=== PATIENT | female | born 1950 | race Caucasian/White ===

== ENCOUNTER 2019-01-17 04:15 | Inpatient (IN) ==
[2019-01-17] MEDS ORDERED: SODIUM CHLORIDE 0.9% 500 ML IV STA (04:42)
[2019-01-17] MEDS ORDERED: MORPHINE 4 MG/1 ML VIAL IV STA (04:42)
[2019-01-17] MEDS ORDERED: ONDANSETRON 4 MG/2 ML VIAL IV STA (04:42)
[2019-01-17 04:49] LABS: Basophils % 0.1 % (0.0-0.8); Eosinophils % 0.2 % (0.00-10.9); Hematocrit 31.8 VOL% (35.7-47.0); Hemoglobin 10.2 GM/DL (12.0-16.0); Immature Granulocytes % 0.9 %; Immature Granulocytes Absolute 0.15 #; Lymphocytes # 2.1 10*3/uL (1.4-4.0); Lymphocytes % 12.4 % (21.3-54.2); Mean Corpuscular HGB Conc 32.1 GM/DL (32-36); Mean Corpuscular Volume 96.7 FL (87-102); Mean Platelet Volume 10.4 FL (9.6-12.0); Monocytes % 9.6 % (1.7-12.7); Neutrophils % 76.8 % (38.7-73.9); Platelet Count 238 T/CUMM (130-400); Red Blood Count 3.29 MC/CUMM (3.8-5.5); Red Cell Distribution Width 15.1 % (9.3-17.3); White Blood Count 17.2 T/CUMM (4-12)
[2019-01-17 05:12] LABS: Albumin 2.7 G/DL (3.4-5.0); Calcium 10.2 MG/DL (8.5-10.1); Osmolality,Calculated 271.2 MOS/KG (273-304); Total Protein 7.1 G/DL (6.4-8.3)
[2019-01-17] MEDS ORDERED: metroNIDAZOLE INJ 500 MG in PREMIX 1 EACH IV STA (05:29)
[2019-01-17] MEDS ORDERED: PROMETHAZINE INJ 25 MG in SODIUM CHLORIDE 0.9% 50 ML IV STA (05:46)
[2019-01-17] MEDS ORDERED: HYDROmorphone 2 MG/1 ML VIAL IV STA (05:48)
[2019-01-17] MEDS ORDERED: ACETAMINOPHEN 325 MG TABLET PO PRN (07:25)
[2019-01-17] MEDS ORDERED: MAGNESIUM SULF RIDER 4 GM in PREMIX 1 EACH IV PRN (07:25)
[2019-01-17] MEDS ORDERED: SODIUM CHLORIDE 0.9% 1,000 ML IV SCH (07:25)
[2019-01-17] MEDS ORDERED: INFLUENZA VIRUS VACCINE 0.5 ML SYRINGE IM ONE (07:26)
[2019-01-17] MEDS: PANTOPRAZOLE 40 MG VIAL IV SCH (08:34)
[2019-01-17] MEDS: CIPROFLOXACIN INJ 400 MG in PREMIX 1 EACH IV SCH ×2 (08:35→20:59)
[2019-01-17] MEDS: PROMETHAZINE INJ 25 MG in SODIUM CHLORIDE 0.9% 50 ML IV PRN (09:48)
[2019-01-17 10:16] LABS: Apearance,Urine CLEAR (Clear); Bilirubin,Urine Negative (Negative); Blood, Urine Negative (Negative); Glucose,Urine (UA) Negative (Negative); Ketones,Urine Negative (Negative); Nitrite,Urine Negative (Negative); Protein,Urine Negative; RBC,Urine <1 /HPF (0-4); Squamous Epithelial Cell,Urine Occasional /HPF (0-10); Urine Color Yellow (Yellow); Urine Specific Gravity 1.015 (1.001-1.035); WBC,Urine 1 /HPF (0-6)
[2019-01-17] MEDS: POTASSIUM CHLORIDE RIDER 10 MEQ in PREMIX 1 EACH IV PRN ×2 (11:33→12:49)
[2019-01-17] MEDS: HYDROmorphone 2 MG/1 ML VIAL IV PRN ×2 (12:41→17:48)
[2019-01-17] MEDS: metroNIDAZOLE INJ 500 MG in PREMIX 1 EACH IV SCH ×2 (14:02→23:08)
[2019-01-17] MEDS: MAGNESIUM SULF RIDER 2 GM in PREMIX 1 EACH IV PRN (15:40)
[2019-01-17] MEDS: DEXT 5% NACL 0.9% KCL 20 MEQ 20 MEQ/1,000 ML BAG IV SCH (15:42)
[2019-01-17] MEDS ORDERED: SODIUM PHOSPHATE IV ONE (16:36)
[2019-01-17] MEDS ORDERED: SODIUM CHLORIDE 0.9% IV ONE (16:36)
[2019-01-17] MEDS: RIVAROXABAN 20 MG TABLET PO SCH (17:20)
[2019-01-17] MEDS: ONDANSETRON 4 MG/2 ML VIAL IV PRN (17:48)
[2019-01-18] MEDS: ONDANSETRON 4 MG/2 ML VIAL IV PRN ×2 (01:24→21:03)
[2019-01-18] MEDS: HYDROmorphone 2 MG/1 ML VIAL IV PRN ×5 (01:24→21:03)
[2019-01-18] MEDS: DEXT 5% NACL 0.9% KCL 20 MEQ 20 MEQ/1,000 ML BAG IV SCH ×3 (03:34→15:54)
[2019-01-18 04:33] LABS: Basophils % 0.1 % (0.0-0.8); Eosinophils # 0.2 10*3/uL (0.0-0.87); Eosinophils % 2.2 % (0.00-10.9); Hematocrit 26.8 VOL% (35.7-47.0); Hemoglobin 8.2 GM/DL (12.0-16.0); Immature Granulocytes % 0.3 %; Immature Granulocytes Absolute 0.03 #; Lymphocytes # 1.5 10*3/uL (1.4-4.0); Lymphocytes % 14.8 % (21.3-54.2); Mean Corpuscular HGB Conc 30.6 GM/DL (32-36); Mean Corpuscular Volume 98.5 FL (87-102); Mean Platelet Volume 10.8 FL (9.6-12.0); Monocytes % 9.9 % (1.7-12.7); Neutrophils % 72.7 % (38.7-73.9); Platelet Count 202 T/CUMM (130-400); Red Blood Count 2.72 MC/CUMM (3.8-5.5); Red Cell Distribution Width 14.9 % (9.3-17.3); White Blood Count 10.2 T/CUMM (4-12)
[2019-01-18 04:59] LABS: Calcium 8.6 MG/DL (8.5-10.1); Osmolality,Calculated 283.3 MOS/KG (273-304)
[2019-01-18] MEDS: metroNIDAZOLE INJ 500 MG in PREMIX 1 EACH IV SCH ×3 (06:40→22:38)
[2019-01-18] MEDS: PANTOPRAZOLE 40 MG VIAL IV SCH (09:02)
[2019-01-18] MEDS: CIPROFLOXACIN INJ 400 MG in PREMIX 1 EACH IV SCH ×2 (09:02→21:08)
[2019-01-18] MEDS: RIVAROXABAN 20 MG TABLET PO SCH (09:02)
[2019-01-18] MEDS: PROMETHAZINE INJ 25 MG in SODIUM CHLORIDE 0.9% 50 ML IV PRN (09:03)
[2019-01-18] MEDS: ENOXAPARIN 100 MG/ML SYRINGE SUBCUT SCH ×2 (12:54→23:46)
[2019-01-18] MEDS: DIPHENOXYLATE/ATROPINE 2.5-0.025 MG TABLET PO PRN (12:54)
[2019-01-18] MEDS ORDERED: POTASSIUM PHOSPHATE 30 MMOL in SODIUM CHLORIDE 0.9% 250 ML IV ONE (13:00)
[2019-01-19] MEDS: DEXT 5% NACL 0.9% KCL 20 MEQ 20 MEQ/1,000 ML BAG IV SCH ×4 (02:17→15:23)
[2019-01-19] MEDS: metroNIDAZOLE INJ 500 MG in PREMIX 1 EACH IV SCH ×3 (06:20→22:09)
[2019-01-19 07:26] LABS: Basophils % 0.3 % (0.0-0.8); Eosinophils # 0.2 10*3/uL (0.0-0.87); Eosinophils % 2.4 % (0.00-10.9); Hemoglobin 8.2 GM/DL (12.0-16.0); Immature Granulocytes % 0.5 %; Immature Granulocytes Absolute 0.05 #; Lymphocytes # 1.5 10*3/uL (1.4-4.0); Lymphocytes % 15.3 % (21.3-54.2); Mean Corpuscular HGB Conc 30.4 GM/DL (32-36); Mean Corpuscular Volume 101.1 FL (87-102); Mean Platelet Volume 10.5 FL (9.6-12.0); Monocytes % 10.9 % (1.7-12.7); Neutrophils % 70.6 % (38.7-73.9); Platelet Count 223 T/CUMM (130-400); Red Blood Count 2.67 MC/CUMM (3.8-5.5); Red Cell Distribution Width 14.9 % (9.3-17.3); White Blood Count 9.7 T/CUMM (4-12)
[2019-01-19 07:44] LABS: Calcium 8.7 MG/DL (8.5-10.1); Osmolality,Calculated 275.5 MOS/KG (273-304)
[2019-01-19] MEDS: PANTOPRAZOLE 40 MG VIAL IV SCH (09:13)
[2019-01-19] MEDS: CIPROFLOXACIN INJ 400 MG in PREMIX 1 EACH IV SCH ×2 (09:13→20:35)
[2019-01-19] MEDS: HYDROmorphone 2 MG/1 ML VIAL IV PRN ×3 (09:14→22:08)
[2019-01-19] MEDS: MAGNESIUM SULF RIDER 2 GM in PREMIX 1 EACH IV PRN (11:19)
[2019-01-19] MEDS ORDERED: SODIUM PHOSPHATE INJ 30 MMOL in SODIUM CHLORIDE 0.9% 250 ML IV ONE (12:30)
[2019-01-19] MEDS: ENOXAPARIN 100 MG/ML SYRINGE SUBCUT SCH (14:14)
[2019-01-19] MEDS: HYOSCYAMINE 0.125 MG TABLET PO SCH (20:35)
[2019-01-19] MEDS: DIPHENOXYLATE/ATROPINE 2.5-0.025 MG TABLET PO PRN (22:08)
[2019-01-19] MEDS: ONDANSETRON 4 MG/2 ML VIAL IV PRN (22:08)
[2019-01-20] MEDS: HYOSCYAMINE 0.125 MG TABLET PO SCH ×5 (00:43→23:48)
[2019-01-20] MEDS: ENOXAPARIN 100 MG/ML SYRINGE SUBCUT SCH ×3 (00:45→23:48)
[2019-01-20] MEDS: DEXT 5% NACL 0.9% KCL 20 MEQ 20 MEQ/1,000 ML BAG IV SCH ×3 (01:13→22:54)
[2019-01-20 04:28] LABS: Calcium 8.8 MG/DL (8.5-10.1); Osmolality,Calculated 277.4 MOS/KG (273-304)
[2019-01-20] MEDS: MAGNESIUM SULF RIDER 2 GM in PREMIX 1 EACH IV PRN ×2 (04:44→16:48)
[2019-01-20] MEDS: metroNIDAZOLE INJ 500 MG in PREMIX 1 EACH IV SCH ×3 (05:46→21:54)
[2019-01-20] MEDS: CIPROFLOXACIN INJ 400 MG in PREMIX 1 EACH IV SCH ×2 (08:35→20:02)
[2019-01-20] MEDS: PANTOPRAZOLE 40 MG VIAL IV SCH (08:35)
[2019-01-20] MEDS ORDERED: SODIUM PHOSPHATE INJ 30 MMOL in SODIUM CHLORIDE 0.9% 250 ML IV ONE (12:08)
[2019-01-20] MEDS: DIPHENOXYLATE/ATROPINE 2.5-0.025 MG TABLET PO PRN ×2 (13:24→23:47)
[2019-01-20] MEDS: cefTRIAXone 1,000 MG in SYRINGE 1 EACH IV SCH (13:25)
[2019-01-20] MEDS: ONDANSETRON 4 MG/2 ML VIAL IV PRN (13:30)
[2019-01-21] MEDS: DIPHENOXYLATE/ATROPINE 2.5-0.025 MG TABLET PO PRN ×2 (05:35→13:03)
[2019-01-21] MEDS: HYOSCYAMINE 0.125 MG TABLET PO SCH ×3 (05:35→18:03)
[2019-01-21] MEDS: metroNIDAZOLE INJ 500 MG in PREMIX 1 EACH IV SCH ×3 (05:35→22:54)
[2019-01-21] MEDS: DEXT 5% NACL 0.9% KCL 20 MEQ 20 MEQ/1,000 ML BAG IV SCH (07:42)
[2019-01-21] MEDS: CIPROFLOXACIN INJ 400 MG in PREMIX 1 EACH IV SCH ×2 (08:01→20:43)
[2019-01-21] MEDS: PANTOPRAZOLE 40 MG VIAL IV SCH (08:02)
[2019-01-21] MEDS: ONDANSETRON 4 MG/2 ML VIAL IV PRN (12:47)
[2019-01-21] MEDS: ENOXAPARIN 100 MG/ML SYRINGE SUBCUT SCH (12:47)
[2019-01-21] MEDS ORDERED: SODIUM PHOSPHATE INJ 30 MMOL in SODIUM CHLORIDE 0.9% 250 ML IV ONE (13:30)
[2019-01-21] MEDS: POTASSIUM PHOS/SOD PHOS POWDER 250 MG PACK PO SCH ×2 (14:03→20:43)
[2019-01-21] MEDS: MAGNESIUM CHLORIDE 64 MG TABLET PO SCH ×2 (14:03→20:42)
[2019-01-21] MEDS: cefTRIAXone 1,000 MG in SYRINGE 1 EACH IV SCH (14:04)
[2019-01-22] MEDS: DEXT 5% NACL 0.9% KCL 20 MEQ 20 MEQ/1,000 ML BAG IV SCH ×4 (01:18→21:25)
[2019-01-22] MEDS: ENOXAPARIN 100 MG/ML SYRINGE SUBCUT SCH ×3 (01:24→23:51)
[2019-01-22] MEDS: HYOSCYAMINE 0.125 MG TABLET PO SCH ×5 (01:26→23:50)
[2019-01-22] MEDS: ONDANSETRON 4 MG/2 ML VIAL IV PRN ×3 (01:43→14:17)
[2019-01-22] MEDS: metroNIDAZOLE INJ 500 MG in PREMIX 1 EACH IV SCH ×3 (06:32→23:00)
[2019-01-22] MEDS: PANTOPRAZOLE 40 MG VIAL IV SCH (09:01)
[2019-01-22] MEDS: CIPROFLOXACIN INJ 400 MG in PREMIX 1 EACH IV SCH ×2 (09:01→21:00)
[2019-01-22] MEDS: POTASSIUM PHOS/SOD PHOS POWDER 250 MG PACK PO SCH ×3 (10:00→20:56)
[2019-01-22 10:07] LABS: Basophils % 0.3 % (0.0-0.8); Eosinophils # 0.1 10*3/uL (0.0-0.87); Eosinophils % 1.7 % (0.00-10.9); Hematocrit 27.2 VOL% (35.7-47.0); Hemoglobin 8.5 GM/DL (12.0-16.0); Immature Granulocytes % 3.2 %; Immature Granulocytes Absolute 0.22 #; Lymphocytes # 1.5 10*3/uL (1.4-4.0); Lymphocytes % 20.9 % (21.3-54.2); Mean Corpuscular HGB Conc 31.3 GM/DL (32-36); Mean Corpuscular Volume 97.8 FL (87-102); Mean Platelet Volume 9.7 FL (9.6-12.0); Monocytes % 12.1 % (1.7-12.7); Neutrophils % 61.8 % (38.7-73.9); Platelet Count 294 T/CUMM (130-400); Red Blood Count 2.78 MC/CUMM (3.8-5.5); Red Cell Distribution Width 14.8 % (9.3-17.3); White Blood Count 6.9 T/CUMM (4-12)
[2019-01-22 10:28] LABS: Calcium 8.7 MG/DL (8.5-10.1); Osmolality,Calculated 276.4 MOS/KG (273-304)
[2019-01-22] MEDS: MAGNESIUM CHLORIDE 64 MG TABLET PO SCH ×2 (10:36→21:26)
[2019-01-22] MEDS ORDERED: SODIUM PHOSPHATE INJ 30 MMOL in SODIUM CHLORIDE 0.9% 250 ML IV ONE (11:05)
[2019-01-22] MEDS: POTASSIUM CHLORIDE RIDER 10 MEQ in PREMIX 1 EACH IV PRN ×4 (11:06→17:24)
[2019-01-22] MEDS ORDERED: BISACODYL 5 MG TABLET PO ONE (12:00)
[2019-01-22] MEDS: cefTRIAXone 1,000 MG in SYRINGE 1 EACH IV SCH (13:17)
[2019-01-22] MEDS: DESITIN 4OZ/NYSTATIN 15 GRAM MIXTURE PASTE TOP SCH ×2 (16:25→21:00)
[2019-01-22] MEDS ORDERED: POLYETHYLENE GLYCOL POWDER 255 GM BOTTLE PO ONE (18:00)
[2019-01-22] MEDS: HYDROmorphone 2 MG/1 ML VIAL IV PRN (21:04)
[2019-01-23] MEDS: DEXT 5% NACL 0.9% KCL 20 MEQ 20 MEQ/1,000 ML BAG IV SCH ×3 (05:10→19:36)
[2019-01-23] MEDS: metroNIDAZOLE INJ 500 MG in PREMIX 1 EACH IV SCH ×2 (05:10→14:15)
[2019-01-23] MEDS: HYOSCYAMINE 0.125 MG TABLET PO SCH ×3 (05:58→19:33)
[2019-01-23 07:42] LABS: Blood Urea Nitrogen < 1 MG/DL (7-18); Calcium 8.7 MG/DL (8.5-10.1); Estimated Glom Filtration Rate 109 ML/MIN; Glucose 104 MG/DL (74-106); Osmolality,Calculated 280.3 MOS/KG (273-304)
[2019-01-23] MEDS: CIPROFLOXACIN INJ 400 MG in PREMIX 1 EACH IV SCH ×2 (10:51→23:37)
[2019-01-23] MEDS: PANTOPRAZOLE 40 MG VIAL IV SCH (10:51)
[2019-01-23] MEDS: DESITIN 4OZ/NYSTATIN 15 GRAM MIXTURE PASTE TOP SCH ×2 (10:52→21:44)
[2019-01-23] MEDS: MAGNESIUM CHLORIDE 64 MG TABLET PO SCH (10:52)
[2019-01-23] MEDS ORDERED: POLYETHYLENE GLYCOL POWDER 255 GM BOTTLE PO ONE ×2 (10:57→22:00)
[2019-01-23] MEDS: POTASSIUM PHOS/SOD PHOS POWDER 250 MG PACK PO SCH (12:47)
[2019-01-23] MEDS ORDERED: MAGNESIUM SULF RIDER 4 GM in PREMIX 1 EACH IV ONE (14:06)
[2019-01-23] MEDS: cefTRIAXone 1,000 MG in SYRINGE 1 EACH IV SCH (14:15)
[2019-01-23] MEDS: MAGNESIUM OXIDE 400 MG TABLET PO SCH ×2 (19:32→21:43)
[2019-01-23] MEDS: POTASSIUM PHOS/SOD PHOS 250 MG TABLET PO SCH ×2 (19:33→21:43)
[2019-01-24] MEDS: HYOSCYAMINE 0.125 MG TABLET PO SCH ×4 (00:35→17:43)
[2019-01-24] MEDS: DEXT 5% NACL 0.9% KCL 20 MEQ 20 MEQ/1,000 ML BAG IV SCH ×4 (01:38→23:33)
[2019-01-24] MEDS: metroNIDAZOLE INJ 500 MG in PREMIX 1 EACH IV SCH ×3 (01:38→17:43)
[2019-01-24 06:14] LABS: Albumin 2.3 G/DL (3.4-5.0); Bilirubin,Total 0.9 MG/DL (0.2-1.0); Osmolality,Calculated 275.4 MOS/KG (273-304)
[2019-01-24 07:07] LABS: Basophils % 0.2 % (0.0-0.8); Eosinophils # 0.2 10*3/uL (0.0-0.87); Eosinophils % 2.3 % (0.00-10.9); Hematocrit 26.1 VOL% (35.7-47.0); Hemoglobin 8.2 GM/DL (12.0-16.0); Immature Granulocytes Absolute 0.17 #; Lymphocytes # 1.4 10*3/uL (1.4-4.0); Lymphocytes % 16.8 % (21.3-54.2); Mean Corpuscular HGB Conc 31.4 GM/DL (32-36); Mean Platelet Volume 9.1 FL (9.6-12.0); Neutrophils % 69.7 % (38.7-73.9); Platelet Count 316 T/CUMM (130-400); Red Blood Count 2.69 MC/CUMM (3.8-5.5); Red Cell Distribution Width 15.1 % (9.3-17.3); White Blood Count 8.3 T/CUMM (4-12)
[2019-01-24 07:20] LABS: INR 1.2; PT Patient Result 12.7 SECS (9.6-12.2)
[2019-01-24] MEDS: POTASSIUM PHOS/SOD PHOS 250 MG TABLET PO SCH ×3 (09:13→21:16)
[2019-01-24] MEDS: MAGNESIUM OXIDE 400 MG TABLET PO SCH ×2 (09:13→21:16)
[2019-01-24] MEDS: PANTOPRAZOLE 40 MG VIAL IV SCH (09:13)
[2019-01-24] MEDS: LACTATED RINGERS 1,000 ML IV SCH (09:13)
[2019-01-24] MEDS: DESITIN 4OZ/NYSTATIN 15 GRAM MIXTURE PASTE TOP SCH ×2 (09:14→21:18)
[2019-01-24] MEDS ORDERED: PROPOFOL 200 MG/20 ML VIAL IV ONE (10:00)
[2019-01-24] MEDS ORDERED: LIDOCAINE 2% 5 ML VIAL ONE (10:00)
[2019-01-24] MEDS: cefTRIAXone 1,000 MG in SYRINGE 1 EACH IV SCH (13:15)
[2019-01-24] MEDS: LOPERAMIDE 2 MG CAPSULE PO PRN ×2 (15:45→21:16)
[2019-01-25] MEDS: HYOSCYAMINE 0.125 MG TABLET PO SCH ×3 (00:53→12:46)
[2019-01-25 06:40] LABS: Basophils % 0.2 % (0.0-0.8); Eosinophils # 0.1 10*3/uL (0.0-0.87); Eosinophils % 1.3 % (0.00-10.9); Hematocrit 27.1 VOL% (35.7-47.0); Hemoglobin 8.4 GM/DL (12.0-16.0); Immature Granulocytes % 1.7 %; Immature Granulocytes Absolute 0.15 #; Lymphocytes # 1.5 10*3/uL (1.4-4.0); Lymphocytes % 16.8 % (21.3-54.2); Mean Corpuscular Volume 97.8 FL (87-102); Mean Platelet Volume 9.3 FL (9.6-12.0); Monocytes % 7.7 % (1.7-12.7); Neutrophils % 72.3 % (38.7-73.9); Platelet Count 293 T/CUMM (130-400); Red Blood Count 2.77 MC/CUMM (3.8-5.5); Red Cell Distribution Width 15.1 % (9.3-17.3)
[2019-01-25 07:19] LABS: Calcium 8.5 MG/DL (8.5-10.1); Osmolality,Calculated 286.6 MOS/KG (273-304)
[2019-01-25] MEDS: POTASSIUM PHOS/SOD PHOS 250 MG TABLET PO SCH (08:38)
[2019-01-25] MEDS: MAGNESIUM OXIDE 400 MG TABLET PO SCH (08:38)
[2019-01-25] MEDS: PANTOPRAZOLE 40 MG VIAL IV SCH (08:38)
[2019-01-25] MEDS: LACTATED RINGERS 1,000 ML IV SCH (08:39)
[2019-01-25] MEDS: DEXT 5% NACL 0.9% KCL 20 MEQ 20 MEQ/1,000 ML BAG IV SCH ×2 (08:39→11:08)
[2019-01-25] MEDS: DESITIN 4OZ/NYSTATIN 15 GRAM MIXTURE PASTE TOP SCH (08:40)
[2019-01-25 11:22] VITALS: BP 123/80
[2019-01-25] MEDS: cefTRIAXone 1,000 MG in SYRINGE 1 EACH IV SCH (12:45)
== END 2019-01-25 13:57 | disposition home health service (06) | DRG 348 ==
LOC: N.ED 04:15 → N.EDINP 05:54 → SUATTDRO 05:54 → N.3E 06:17
PROVIDERS: ADMIT Internal Medicine; ATTEND Emergency Medicine

== ENCOUNTER 2019-02-02 15:08 | Inpatient (IN) ==
[2019-02-02] MEDS ORDERED: SODIUM CHLORIDE 0.9% 1,000 ML IV STA (16:44)
[2019-02-02] MEDS ORDERED: ONDANSETRON 4 MG/2 ML VIAL IV STA (16:44)
[2019-02-02] MEDS ORDERED: PANTOPRAZOLE 40 MG VIAL IV STA (16:44)
[2019-02-02] MEDS ORDERED: METOCLOPRAMIDE 10 MG/2 ML VIAL IV STA (16:44)
[2019-02-02] MEDS ORDERED: DICYCLOMINE 20 MG/2 ML AMP IM ONE (16:44)
[2019-02-02] MEDS ORDERED: methylPREDNISolone SOD SUC 125 MG/2 ML VIAL IV STA (16:49)
[2019-02-02] MEDS ORDERED: metroNIDAZOLE INJ 500 MG in PREMIX 1 EACH IV STA (16:49)
[2019-02-02 18:29] LABS: Basophils % 0.3 % (0.0-0.8); Eosinophils # 0.1 10*3/uL (0.0-0.87); Eosinophils % 0.9 % (0.00-10.9); Hematocrit 30.8 VOL% (35.7-47.0); Hemoglobin 9.9 GM/DL (12.0-16.0); Immature Granulocytes % 0.6 %; Immature Granulocytes Absolute 0.07 #; Lymphocytes # 2.2 10*3/uL (1.4-4.0); Lymphocytes % 19.4 % (21.3-54.2); Mean Corpuscular HGB Conc 32.1 GM/DL (32-36); Mean Platelet Volume 9.8 FL (9.6-12.0); Monocytes % 13.1 % (1.7-12.7); Neutrophils % 65.7 % (38.7-73.9); Platelet Count 455 T/CUMM (130-400); Red Blood Count 3.21 MC/CUMM (3.8-5.5); Red Cell Distribution Width 16.4 % (9.3-17.3); White Blood Count 11.2 T/CUMM (4-12)
[2019-02-02 18:53] LABS: Alanine Aminotransferase 11 U/L (13-56); Albumin 2.8 G/DL (3.4-5.0); Alkaline Phosphatase 54 U/L (45-117); Aspartate Amino Transferase 13 U/L (0-37); Blood Urea Nitrogen 13 MG/DL (7-18); Calcium 10.1 MG/DL (8.5-10.1); Estimated Glom Filtration Rate 75 ML/MIN; Glucose 98 MG/DL (74-106); Troponin I < 0.015 NG/ML (0.00-0.045)
[2019-02-02] MEDS ORDERED: MAGNESIUM SULF RIDER 2 GM in PREMIX 1 EACH IV PRN (19:25)
[2019-02-02] MEDS ORDERED: ACETAMINOPHEN 325 MG TABLET PO PRN (19:25)
[2019-02-02] MEDS ORDERED: POTASSIUM CHLORIDE 20 MEQ TABLET PO PRN (19:25)
[2019-02-02] MEDS ORDERED: ONDANSETRON 4 MG/2 ML VIAL IV PRN (19:25)
[2019-02-02] MEDS ORDERED: MAGNESIUM SULF RIDER 4 GM in PREMIX 1 EACH IV PRN (19:25)
[2019-02-02] MEDS: RIVAROXABAN 20 MG TABLET PO SCH (22:46)
[2019-02-02] MEDS: SODIUM CHLORIDE 0.9% 1,000 ML IV SCH (22:46)
[2019-02-02] MEDS: GABAPENTIN 300 MG CAPSULE PO SCH (22:46)
[2019-02-02] MEDS: METOPROLOL TARTRATE 25 MG TABLET PO SCH (22:47)
[2019-02-02] MEDS: CIPROFLOXACIN INJ 400 MG in PREMIX 1 EACH IV SCH (22:56)
[2019-02-03] MEDS: metroNIDAZOLE INJ 500 MG in PREMIX 1 EACH IV SCH ×4 (02:51→20:53)
[2019-02-03] MEDS: ATORVASTATIN 20 MG TABLET PO SCH (09:36)
[2019-02-03] MEDS: METOPROLOL TARTRATE 25 MG TABLET PO SCH ×2 (09:36→20:58)
[2019-02-03] MEDS: GABAPENTIN 300 MG CAPSULE PO SCH ×4 (09:36→20:53)
[2019-02-03] MEDS: FENOFIBRATE 160 MG TABLET PO SCH (09:37)
[2019-02-03] MEDS: PANTOPRAZOLE 40 MG TABLET PO SCH (09:37)
[2019-02-03] MEDS: CIPROFLOXACIN INJ 400 MG in PREMIX 1 EACH IV SCH ×2 (11:14→22:00)
[2019-02-03] MEDS: SODIUM CHLORIDE 0.9% 1,000 ML IV SCH ×3 (12:25→20:58)
[2019-02-03 16:22] LABS: Basophils % 0.2 % (0.0-0.8); Eosinophils % 0.1 % (0.00-10.9); Hematocrit 29.4 VOL% (35.7-47.0); Hemoglobin 9.2 GM/DL (12.0-16.0); Immature Granulocytes % 0.6 %; Immature Granulocytes Absolute 0.06 #; Lymphocytes # 1.9 10*3/uL (1.4-4.0); Mean Corpuscular HGB Conc 31.3 GM/DL (32-36); Mean Platelet Volume 9.4 FL (9.6-12.0); Neutrophils % 68.1 % (38.7-73.9); Platelet Count 397 T/CUMM (130-400); Red Blood Count 3.03 MC/CUMM (3.8-5.5); Red Cell Distribution Width 16.1 % (9.3-17.3); White Blood Count 10.4 T/CUMM (4-12)
[2019-02-03 17:04] LABS: Alanine Aminotransferase < 9 U/L (13-56); Albumin 2.7 G/DL (3.4-5.0); Alkaline Phosphatase 50 U/L (45-117); Aspartate Amino Transferase 10 U/L (0-37); Bilirubin,Total < 0.39 MG/DL (0.2-1.0); Blood Urea Nitrogen 13 MG/DL (7-18); Calcium 9.3 MG/DL (8.5-10.1); Estimated Glom Filtration Rate 86 ML/MIN; Glucose 112 MG/DL (74-106); Osmolality,Calculated 275.7 MOS/KG (273-304); Total Protein 6.6 G/DL (6.4-8.3)
[2019-02-03] MEDS: RIVAROXABAN 20 MG TABLET PO SCH (20:53)
[2019-02-04] MEDS: metroNIDAZOLE INJ 500 MG in PREMIX 1 EACH IV SCH ×4 (01:38→20:38)
[2019-02-04] MEDS: SODIUM CHLORIDE 0.9% 1,000 ML IV SCH ×3 (04:09→22:10)
[2019-02-04 05:55] LABS: Basophils % 0.3 % (0.0-0.8); Eosinophils # 0.1 10*3/uL (0.0-0.87); Eosinophils % 0.9 % (0.00-10.9); Hematocrit 25.9 VOL% (35.7-47.0); Hemoglobin 8.2 GM/DL (12.0-16.0); Immature Granulocytes % 0.6 %; Immature Granulocytes Absolute 0.04 #; Lymphocytes # 2.1 10*3/uL (1.4-4.0); Lymphocytes % 31.3 % (21.3-54.2); Mean Corpuscular HGB Conc 31.7 GM/DL (32-36); Mean Corpuscular Volume 96.6 FL (87-102); Mean Platelet Volume 9.6 FL (9.6-12.0); Monocytes % 12.5 % (1.7-12.7); Neutrophils % 54.4 % (38.7-73.9); Platelet Count 299 T/CUMM (130-400); Red Blood Count 2.68 MC/CUMM (3.8-5.5); Red Cell Distribution Width 16.4 % (9.3-17.3); White Blood Count 6.8 T/CUMM (4-12)
[2019-02-04 06:18] LABS: Alanine Aminotransferase < 9 U/L (13-56); Albumin 2.2 G/DL (3.4-5.0); Alkaline Phosphatase 43 U/L (45-117); Aspartate Amino Transferase 7 U/L (0-37); Blood Urea Nitrogen 11 MG/DL (7-18); Calcium 9.4 MG/DL (8.5-10.1); Estimated Glom Filtration Rate 101 ML/MIN; Glucose 119 MG/DL (74-106); Osmolality,Calculated 285.8 MOS/KG (273-304); Total Protein 5.5 G/DL (6.4-8.3)
[2019-02-04] MEDS: FENOFIBRATE 160 MG TABLET PO SCH (09:54)
[2019-02-04] MEDS: METOPROLOL TARTRATE 25 MG TABLET PO SCH ×2 (09:54→20:40)
[2019-02-04] MEDS: PANTOPRAZOLE 40 MG TABLET PO SCH (09:54)
[2019-02-04] MEDS: ATORVASTATIN 20 MG TABLET PO SCH (09:54)
[2019-02-04] MEDS: GABAPENTIN 300 MG CAPSULE PO SCH ×4 (09:54→20:40)
[2019-02-04] MEDS: CIPROFLOXACIN INJ 400 MG in PREMIX 1 EACH IV SCH (11:07)
[2019-02-04 13:29] LABS: Apearance,Urine CLEAR (Clear); Bilirubin,Urine Negative (Negative); Blood, Urine Negative (Negative); Glucose,Urine (UA) Negative (Negative); Ketones,Urine Negative (Negative); Mucus,Urine Occasional /LPF (Occasional); Nitrite,Urine Negative (Negative); Protein,Urine Negative; RBC,Urine 14 /HPF (0-4); Squamous Epithelial Cell,Urine Occasional /HPF (0-10); Urine Color Yellow (Yellow); Urine Specific Gravity 1.009 (1.001-1.035); Urine Urobilinogen < 2.0 EU/DL (0.2-1.0); WBC,Urine <1 /HPF (0-6)
[2019-02-04] MEDS ORDERED: AZITHROMYCIN 250 MG TABLET PO ONE (15:00)
[2019-02-04] MEDS: RIVAROXABAN 20 MG TABLET PO SCH (20:40)
[2019-02-05] MEDS: metroNIDAZOLE INJ 500 MG in PREMIX 1 EACH IV SCH ×3 (02:42→13:08)
[2019-02-05 05:40] LABS: Basophils % 0.4 % (0.0-0.8); Eosinophils # 0.1 10*3/uL (0.0-0.87); Eosinophils % 1.3 % (0.00-10.9); Hematocrit 27.1 VOL% (35.7-47.0); Hemoglobin 8.6 GM/DL (12.0-16.0); Immature Granulocytes % 0.4 %; Immature Granulocytes Absolute 0.03 #; Lymphocytes # 2.1 10*3/uL (1.4-4.0); Lymphocytes % 28.9 % (21.3-54.2); Mean Corpuscular HGB Conc 31.7 GM/DL (32-36); Mean Corpuscular Volume 96.1 FL (87-102); Mean Platelet Volume 9.6 FL (9.6-12.0); Monocytes % 12.6 % (1.7-12.7); Neutrophils % 56.4 % (38.7-73.9); Platelet Count 309 T/CUMM (130-400); Red Blood Count 2.82 MC/CUMM (3.8-5.5); Red Cell Distribution Width 15.9 % (9.3-17.3); White Blood Count 7.2 T/CUMM (4-12)
[2019-02-05 06:04] LABS: Alanine Aminotransferase < 6 U/L (13-56); Albumin 2.4 G/DL (3.4-5.0); Alkaline Phosphatase 46 U/L (45-117); Aspartate Amino Transferase 10 U/L (0-37); Blood Urea Nitrogen 6 MG/DL (7-18); Calcium 9.1 MG/DL (8.5-10.1); Estimated Glom Filtration Rate 101 ML/MIN; Glucose 108 MG/DL (74-106); Osmolality,Calculated 284.8 MOS/KG (273-304); Total Protein 5.6 G/DL (6.4-8.3)
[2019-02-05] MEDS: SODIUM CHLORIDE 0.9% 1,000 ML IV SCH (07:51)
[2019-02-05] MEDS: METOPROLOL TARTRATE 25 MG TABLET PO SCH (10:20)
[2019-02-05] MEDS: ATORVASTATIN 20 MG TABLET PO SCH (10:20)
[2019-02-05] MEDS: PANTOPRAZOLE 40 MG TABLET PO SCH (10:20)
[2019-02-05] MEDS: GABAPENTIN 300 MG CAPSULE PO SCH ×2 (10:20→13:08)
[2019-02-05] MEDS: FENOFIBRATE 160 MG TABLET PO SCH (10:21)
[2019-02-05 13:21] VITALS: BP 145/75
== END 2019-02-05 15:03 | disposition home or self-care (01) | DRG 392 ==
LOC: N.ED 15:08 → N.EDINP 19:24 → SUATTDRO 19:24 → N.5E 19:59
PROVIDERS: ADMIT Internal Medicine; ATTEND Internal Medicine